=== PATIENT | female | born 1985 | race Caucasian/White ===

== ENCOUNTER 2017-09-04 14:29 | Outpatient (CLI) ==
[2015-05-22 20:10] VITALS: BMI 34.7
--- NOTE | 2017-09-04 15:21 | DI ---
EXAM: Three views of the left fingers. History: Left thumb pain. Findings: No acute fracture or dislocation. No abnormal calcifications or radiopaque foreign bodies . Joint spaces are preserved. Impression: Unremarkable exam
--- NOTE | 2017-09-04 15:21 | DI ---
EXAM: Three views of the right fingers. History: Right thumb pain. Findings: No acute fracture or dislocation. No abnormal calcifications or radiopaque foreign bodies . Joint spaces are preserved. Impression: Unremarkable exam
== END 2017-09-04 14:30 | disposition home or self-care (01) ==
LOC: RAD 14:29
PROVIDERS: ATTEND Family Medicine
DX: M79.644 Pain in right finger(s) (principal); M79.645 Pain in left finger(s)

== ENCOUNTER 2017-10-13 15:42 | Emergency (ER) ==
[2017-10-13 15:57] VITALS: BP 143/99; TEMP 99.2; BMI 39.4
--- NOTE | 2017-10-13 17:09 | ED.PDOC ---
General ED Provider: Dr. JO ANN CHEEMA Chief Complaint: Abscess Stated Complaint: PAIN, REDNESS AND SWELLING RT FOREARM. STATED CAME INSIDE AFTER WALKING HER DOG LAST NIGHT AND FELT SLIGHT DISCOMFORT LT FOREARM. APPEARED LIKE INSECT OR MOSQUITO BITE. Time Seen by Physician: 16:00 Mode of Arrival: Walk-In Information Source: Patient Exam Limitations: No limitations Primary Care Provider: JO ANN ESCAMILLA Nursing and Triage Documentation Reviewed and Agree: Yes Reviewed sepsis parameters & appropriate labs ordered?: Yes System Inflammatory Response Syndrome: Not Applicable Sepsis Protocol: For patient's 13 years and over: Temp is 96.8 and below OR 101 and greater Pulse >90 BPM Resp >20/minute Acutely Altered Mental Status Are patient's symptoms suggestive of a new infection, such as: -Pneumonia -Skin, Soft Tissue -Endocarditis -UTI -Bone, Joint Infection -Implantable Device -Acute Abdominal Infection -Wound Infection -Meningitis -Blood Stream Catheter Infection -Unknown System Inflammatory Response Syndrome: Not Applicable Environmental Complaint Exam - Allergic Reaction Complaint/Exam Symptoms Are: Still present Timing: Constant Initial Severity: Moderate Current Severity: Moderate Location: Discrete Character: Present: Swelling, Pruritis, Pain Aggravating: Reports: None Alleviating: Reports: None Associated Signs and Symptoms: Denies: Difficulty breathing, Cough, Hoarseness, Rash, Abdominal pain, Diaphoresis, Lightheadedness, Syncope, Nausea Possible Reaction To: Reports: Insect Diphenhydramine Prior to Arrival: No Epinephrine Auto Injector Prior to Arrival: No Respiratory Distress: None Findings: Present: Vesicular rash. Absent: Dysphagia, Hoarseness, Oropharyngeal edema, Angioedema, Petechiael rash Differential Diagnoses: Local Allergic Reaction (WITH SURROUNDING ERYTHREMA EXTENDING APPROXIMATELY 3 CM) Review of Systems - Review Of Systems Constitutional: Reports: No symptoms Eyes: Reports: No symptoms Ears, Nose, Mouth, Throat: Reports: No symptoms Respiratory: Reports: No symptoms Cardiac: Reports: No symptoms GI: Reports: No symptoms : Reports: No symptoms Musculoskeletal: Reports: No symptoms Skin: Reports: Change in color, Lesions (ERYTHREMA), Rash Neurological: Reports: No symptoms All Other Systems: Reviewed and Negative Past Medical History - Past Medical History Endocrine: Reports: None Cardiovascular: Reports: Hypertension Respiratory: Reports: None Hematological: Reports: None Gastrointestinal: Reports: None Genitourinary: Reports: None Neuro/Psych: Reports: Anxiety Musculoskeletal: Reports: None Cancer: Reports: None Last Menstrual Period: 10/07/16 Other Pertinent Past Medical History: RECENT DELIVERY 5 WEEKS AGO - Surgical History General Surgical History: Reports: None - Family History Family History: Reports: None - Social History Smoking Status: Never smoker Hx Substance Use: No Alcohol Screening: None - Immunizations Tetanus Shot up to Date: Yes (few months ago) Physical Exam - Physical Exam Appearance: Well-appearing Ill-appearing: None Pain Distress: Mild Eyes: SAMMY, EOMI, Conjunctiva clear ENT: Ears normal, Nose normal, Oropharynx normal Neck: Supple Respiratory: Airway patent, Breath sounds clear, Breath sounds equal, Wheezes ( FINE POS[employer]IOR [employer]SP[employer]) Cardiovascular: RRR, Pulses normal, No rub, No murmur GI/: Soft, Nontender Musculoskeletal: Normal strength, ROM intact, No edema Skin: Warm (LT FOREARM VOLAR LAT ASPECT DISTAL 1/3 CENTRAL [id number]-[id number] LIZET WITH SURROUNDING ERYTHREMA /PATIENT DEMARCATED WITH PEN(4 CM)) Neurological: Sensation intact, Alert, Oriented Psychiatric: Affect appropriate, Mood appropriate Re-Evaluation - Re-Evaluation Time of Re-Evaluation: 18:30 Status: Improved Vital Signs Stable: Yes Appearance: NAD Lungs: Clear Skin: Warm and Dry (ERYTHREMA LESSENED AND LESS EDEMATOUS AND LESS TENDER) Neuro: Alert and Oriented X3 CV: RRR Critical Care Note - Critical Care Note Total Time (mins): 0 Course - Course Hematology/Chemistry: 10/13/17 17:25 10/13/17 17:25 Orders, Labs, Meds: Lab Review 10/13/17 10/13/17 17:25 17:25 WBC 9.91 RBC 4.84 Hgb 14.1 Hct 41.7 MCV 86.2 MCH 29.1 MCHC 33.8 RDW Coeff of Rozina 12.8 Plt Count 335 Immature Gran % (Auto) 0.2 Neut % (Auto) 58.6 Lymph % (Auto) 33.8 [place] % (Auto) 5.0 Eos % (Auto) 2.0 Baso % (Auto) 0.4 Immature Gran # (Auto) 0.0 Neut # (Auto) 5.8 Lymph # (Auto) 3.4 [place] # (Auto) 0.5 Eos # (Auto) 0.2 Baso # (Auto) 0.0 Sodium 140 Potassium 3.9 Chloride 105 Carbon Dioxide 24 Anion Gap 14.9 BUN 12 Creatinine 0.85 Estimated GFR (MDRD) 77.00 BUN/Creatinine Ratio 14.11 Glucose 89 Calcium 9.1 Total Bilirubin 0.4 AST 20 ALT 39 Alkaline Phosphatase 105 H Total Protein 7.7 Albumin 3.4 Globulin 4.3 Albumin/Globulin Ratio 0.79 Orders Category Date Time Status CBC W/ AUTO DIFF Stat LAB 10/13/17 17:25 Completed CMP [COMPREHENSIVE METABOLIC PANEL] Stat LAB 10/13/17 17:25 Completed Dexamethasone 4 mg/ml Inj [Decadron 4 mg/ml Sdv] MEDS 10/13/17 17:02 Discontinued 4 mg IM ONCE STA Diphenhydramine HCl [Benadryl] MEDS 10/13/17 17:03 Discontinued 25 mg PO ONCE STA Medications Discontinued Medications Generic Name Dose Route Start Last Admin Trade Name Freq PRN Reason Stop Dose Admin Dexamethasone Sodium Phosphate 4 mg 10/13/17 17:02 10/13/17 17:22 Decadron 4 Mg/Ml Sdv IM 10/13/17 17:03 4 mg ONCE STA Administration Diphenhydramine HCl 25 mg 10/13/17 17:03 10/13/17 17:22 Benadryl PO 10/13/17 17:04 25 mg ONCE STA Administration Vital Signs: Temp Pulse Resp BP Pulse Ox 10/13/17 15:43 99.2 F 83 20 143/99 H 98 Departure - Departure Time of Disposition: 18:35 Disposition: HOME SELF-CARE Discharge Problem: Insect bite, Cellulitis of forearm, left Instructions: Cellulitis (ED), Insect Bite or Sting (ED) Condition: Good Pt referred to PMD for follow-up: Yes (3-4 DAYS) IPMP verified?: No Additional Instructions: TAKE MEDS DIRECTED RETURN TO ER IF WORSENS Prescriptions: Azithromycin [Zithromax] 250 mg PO DAILY #6 tablet Prednisone 10 mg PO DAILYWM #22 tablet Allergies/Adverse Reactions: Allergies Penicillins Adverse Reaction (Verified 10/13/17 15:56) Home Medications: Ambulatory Orders Bupropion HCl [Wellbutrin] 75 mg PO DAILY 05/22/15 Azithromycin [Zithromax] 250 mg PO DAILY #6 tablet 10/13/17 Prednisone 10 mg PO DAILYWM #22 tablet 10/13/17 Disposition Discussed With: Patient, Family
[2017-10-13] MEDS: BENADRYL PO STA (17:22)
[2017-10-13] MEDS: DECADRON 4 MG/ML SDV IM STA (17:22)
== END 2017-10-13 18:55 | disposition home or self-care (01) ==
LOC: ED 15:42
DX: L03.114 Cellulitis of left upper limb (principal); S50.862A Insect bite (nonvenomous) of left forearm, initial encounter; W57.XXXA Bitten or stung by nonvenomous insect and other nonvenomous arthropods, initial encounter
CPT/HCPCS: 36415; 80053; 85025; 96372; 99282

== ENCOUNTER 2017-12-24 16:34 | Emergency (ER) | payer OTHER ==
[2017-12-24 16:48] VITALS: BP 121/92; TEMP 98.5; BMI 40.1
[2017-12-24] MEDS ORDERED: DUONEB NEB STA (16:49)
--- NOTE | 2017-12-24 17:57 | ED.PDOC ---
General <JO ANN RUFF - Last Filed: 12/24/17 18:54> Stated Complaint: SHORTNESS OF BREATH Time Seen by Physician: 16:40 (SEEN WITH PT'S NURSE ) Mode of Arrival: Walk-In Information Source: Patient Exam Limitations: No limitations Referred to ED by: Other (5 DAYS POST OP FROM /B SURGERY) Nursing and Triage Documentation Reviewed and Agree: Yes Reviewed sepsis parameters & appropriate labs ordered?: Yes System Inflammatory Response Syndrome: Not Applicable System Inflammatory Response Syndrome: Not Applicable <WOODY ROB - Last Filed: 12/26/17 08:20> ED Provider: Dr. WOODY ROB Chief Complaint: Shortness of Air Primary Care Provider: JO ANN ESCAMILLA Sepsis Protocol: For patient's 13 years and over: Temp is 96.8 and below OR 101 and greater Pulse >90 BPM Resp >20/minute Acutely Altered Mental Status Are patient's symptoms suggestive of a new infection, such as: -Pneumonia -Skin, Soft Tissue -Endocarditis -UTI -Bone, Joint Infection -Implantable Device -Acute Abdominal Infection -Wound Infection -Meningitis -Blood Stream Catheter Infection -Unknown Review of Systems - Review Of Systems Constitutional: Reports: No symptoms Eyes: Reports: No symptoms Ears, Nose, Mouth, Throat: Reports: No symptoms Respiratory: Reports: Cough, Short of air Cardiac: Reports: No symptoms GI: Reports: No symptoms : Reports: No symptoms Musculoskeletal: Reports: No symptoms Skin: Reports: No symptoms Neurological: Reports: No symptoms Endocrine: Reports: No symptoms Hematologic/Lymphatic: Reports: No symptoms All Other Systems: Reviewed and Negative <WOODY ROB - Last Filed: 12/26/17 08:20> Past Medical History - Past Medical History Previously Healthy: Yes Endocrine: Reports: None Cardiovascular: Reports: Hypertension Respiratory: Reports: None Hematological: Reports: None Gastrointestinal: Reports: None Genitourinary: Reports: None Neuro/Psych: Reports: Anxiety Musculoskeletal: Reports: None Cancer: Reports: None Last Menstrual Period: 12/13/17 Other Pertinent Past Medical History: RECENT DELIVERY 5 WEEKS AGO - Surgical History General Surgical History: Reports: None - Family History Family History: Reports: None - Social History Smoking Status: Never smoker Hx Substance Use: No Alcohol Screening: None <WOODY ROB - Last Filed: 12/26/17 08:20> Physical Exam - Physical Exam Appearance: Ill-appearing Ill-appearing: Mild Pain Distress: Mild Eyes: SAMMY, EOMI, Conjunctiva clear ENT: Ears normal, Nose normal, Oropharynx normal Respiratory: Wheezes Cardiovascular: RRR, Pulses normal, No rub, No murmur GI/: Soft, Nontender, No masses, Bowel sounds normal, No Organomegaly Musculoskeletal: Normal strength, ROM intact, No edema, No calf tenderness Skin: Warm, Dry, Normal color Neurological: Sensation intact, Motor intact, Reflexes intact, Cranial nerves intact, Alert, Oriented Psychiatric: Affect appropriate, Mood appropriate <WOODY ROB - Last Filed: 12/26/17 08:20> Critical Care Note - Critical Care Note Total Time (mins): 0 <WOODY ROB - Last Filed: 12/26/17 08:20> Course - Course Hematology/Chemistry: 12/24/17 16:51 12/24/17 16:51 <JO ANN RUFF - Last Filed: 12/24/17 18:54> - Course Hematology/Chemistry: 12/24/17 16:51 12/24/17 16:51 <WOODY ROB - Last Filed: 12/26/17 08:20> - Course Orders, Labs, Meds: Lab Review 12/24/17 12/24/17 12/24/17 16:51 16:51 16:51 WBC 5.10 RBC 4.77 Hgb 13.8 Hct 40.6 MCV 85.1 MCH 28.9 MCHC 34.0 RDW Coeff of Rozina 12.1 Plt Count 246 Immature Gran % (Auto) 0.2 Neut % (Auto) 46.2 Lymph % (Auto) 36.1 [place] % (Auto) 10.6 H Eos % (Auto) 6.3 Baso % (Auto) 0.6 Immature Gran # (Auto) 0.0 Neut # (Auto) 2.4 Lymph # (Auto) 1.8 [place] # (Auto) 0.5 Eos # (Auto) 0.3 Baso # (Auto) 0.0 D-Dimer (Manual) 1214.35 Sodium 138 Potassium 4.0 Chloride 104 Carbon Dioxide 24 Anion Gap 14.0 BUN 10 Creatinine 0.79 Estimated GFR (MDRD) 84.00 BUN/Creatinine Ratio 12.65 Glucose 108 Calcium 9.0 Total Bilirubin 0.5 AST 20 ALT 41 Alkaline Phosphatase 131 H Total Creatine Kinase 24 Troponin I < 0.0100 Total Protein 6.8 Albumin 2.9 L Globulin 3.9 Albumin/Globulin Ratio 0.74 Serum , Qual 12/24/17 16:51 WBC RBC Hgb Hct MCV MCH MCHC RDW Coeff of Rozina Plt Count Immature Gran % (Auto) Neut % (Auto) Lymph % (Auto) [place] % (Auto) Eos % (Auto) Baso % (Auto) Immature Gran # (Auto) Neut # (Auto) Lymph # (Auto) [place] # (Auto) Eos # (Auto) Baso # (Auto) D-Dimer (Manual) Sodium Potassium Chloride Carbon Dioxide Anion Gap BUN Creatinine Estimated GFR (MDRD) BUN/Creatinine Ratio Glucose Calcium Total Bilirubin AST ALT Alkaline Phosphatase Total Creatine Kinase Troponin I Total Protein Albumin Globulin Albumin/Globulin Ratio Serum , Qual Negative Orders Category Date Time Status NEBULIZER TREATMENT Stat CARDIO 12/24/17 16:49 Completed NPO REMINDER: IMAGING ONCE CARE 12/24/17 17:46 Completed ED IV/MEDIPORT/POWERPORT .ONCE EMERGENCY 12/24/17 16:41 Active CBC W/ AUTO DIFF Stat LAB 12/24/17 16:51 Completed COMPREHENSIVE METABOLIC PANEL Stat LAB 12/24/17 16:51 Completed CREATINE KINASE Stat LAB 12/24/17 16:51 Completed D-DIMER Stat LAB 12/24/17 16:51 Completed SERUM Stat LAB 12/24/17 16:51 Completed TROPONIN I Stat LAB 12/24/17 16:51 Completed 0.9 % Sodium Chloride [Saline Flush] MEDS 12/24/17 16:41 Discontinued 1 syr IVF PRN PRN Ipratropium/Albuterol Neb [Duoneb] MEDS 12/24/17 16:49 Discontinued 1 vial NEB ONCE STA Levofloxacin [Levaquin] MEDS 12/24/17 18:53 Discontinued 500 mg PO ONCE STA CT CHEST PE PROTOCOL Stat RADS 12/24/17 17:46 Completed Medications Discontinued Medications Generic Name Dose Route Start Last Admin Trade Name Freq PRN Reason Stop Dose Admin Albuterol/Ipratropium 1 vial 12/24/17 16:49 12/24/17 17:29 Duoneb NEB 12/24/17 16:50 1 vial ONCE STA Administration Levofloxacin 500 mg 12/24/17 18:53 12/24/17 18:58 Levaquin PO 12/24/17 18:54 500 mg ONCE STA Administration Sodium Chloride 1 syr 12/24/17 16:41 Saline Flush IVF PRN PRN To flush IV Vital Signs: Temp Pulse Resp BP Pulse Ox 12/24/17 16:38 98.5 F 79 28 H 121/92 H 98 Departure - Departure Pt referred to PMD for follow-up: Yes IPMP verified?: No Disposition Discussed With: Patient, Family <ANDIJO ANN BORREGO - Last Filed: 12/24/17 18:54> - Departure Time of Disposition: 19:00 Pt referred to PMD for follow-up: Yes IPMP verified?: No Disposition Discussed With: Patient <WOODY ROB - Last Filed: 12/26/17 08:20> - Departure Disposition: HOME SELF-CARE Discharge Problem: Shortness of breath Instructions: Community Acquired Pneumonia (ED), Shortness of Breath (ED) Condition: Good Additional Instructions: levaquin 500mg q daily #10---f/u with outpatientPlease call your Family Physician as soon as possible to schedule a follow-up appointment. Allergies/Adverse Reactions: Allergies adhesive Adverse Reaction (Verified 12/25/17 13:52) Penicillins Adverse Reaction (Verified 12/25/17 13:52) Home Medications: Ambulatory Orders Desogestrel-Ethinyl Estradiol [Apri 28 Day Tablet] 1 each PO DAILY 12/24/17 Escitalopram Oxalate [Lexapro] 20 mg PO DAILY 12/24/17 Hydrocodone Bit/Acetaminophen [[place] 5-325] 1 - 2 tab PO Q4HR PRN 12/24/17 Labetalol HCl 200 mg PO DAILY 12/24/17 No122/Iron/Folic Acid [ Multi Tablet] 1 each PO DAILY 12/24/17
--- NOTE | 2017-12-24 18:49 | CT ---
Exam: CT angiography of the chest History: Status post gallbladder surgery with elevated D-dimer Technique: [address] of the chest utilizing CT angiography protocol. Multiplanar and max imum intensity projection reformations were performed. FINDINGS: Technically adequate for evaluation of pulmonary arteries and aorta. There are no pulmona ry artery filling defects. Vague reticular nodular infiltrate in the left lower lobe. There is no pl eural fluid or consolidative opacity. No pathologic lymph node enlargement or abundance. No abnorma lity of the heart, great vessels or pericardium. No abnormality of the chest wall soft tissues or tobi ny thorax. No abnormality of the upper abdomen. Impression: 1. No evidence of pulmonary artery thrombus 2. Reticular and nodular left lower lobe infiltrate. Correlate for pneumonitis.
[2017-12-24] MEDS ORDERED: LEVAQUIN PO STA (18:53)
== END 2017-12-24 18:59 | disposition home or self-care (01) ==
LOC: ED 16:34
DX: J18.9 Pneumonia, unspecified organism (principal); R06.02 Shortness of breath; I10 Essential (primary) hypertension; Z98.890 Other specified postprocedural states
CPT/HCPCS: 36415; 80053; 82550; 84484; 84703; 85025; 85379; 94640; 99284

== ENCOUNTER 2017-12-25 13:42 | Emergency (ER) | payer OTHER ==
[2017-12-25 13:50] VITALS: BP 136/91; TEMP 98.4; BMI 39.4
--- NOTE | 2017-12-25 14:19 | ED.PDOC ---
General ED Provider: Dr. JO ANN CHEEMA Chief Complaint: Abdominal Pain Stated Complaint: Abdominal pain. Patient presents for re evaluation of her pain. was evaluated in the ER yesterday for same symptoms. Discharged with dx of pneumonia. had gallbladder surgery this past . States she has developed upper abd pain, sharp in nature State it feels like area where she had the surgery and were her gallbladder was located. Stated she had ct scan yesterday to r/o Pulmonary Embolus which was negative. yesterday-- none found but has pneumonia--"this does not feel like pneumonia"--feels weak and like she might pass out at time Time Seen by Physician: 14:15 Mode of Arrival: Walk-In Information Source: Patient Exam Limitations: No limitations Primary Care Provider: JO ANN ESCAMILLA Seen Within Last 72 Hours for Same Complaint By: ED Nursing and Triage Documentation Reviewed and Agree: Yes Reviewed sepsis parameters & appropriate labs ordered?: Yes System Inflammatory Response Syndrome: Not Applicable Sepsis Protocol: For patient's 13 years and over: Temp is 96.8 and below OR 101 and greater Pulse >90 BPM Resp >20/minute Acutely Altered Mental Status Are patient's symptoms suggestive of a new infection, such as: -Pneumonia -Skin, Soft Tissue -Endocarditis -UTI -Bone, Joint Infection -Implantable Device -Acute Abdominal Infection -Wound Infection -Meningitis -Blood Stream Catheter Infection -Unknown System Inflammatory Response Syndrome: Not Applicable GI Complaint Exam - Abdominal Pain Complaint/Exam Onset: Gradual Symptoms Are: Still present (but improved) Timing: Intermittent Initial Severity: Severe Current Severity: Mild Location of Pain: RUQ Radiates To: Reports: Back (and middle abdomen under rt breast) Character: Reports: Dull Aggravating: Reports: Movement Alleviating: Reports: Rest Associated Signs and Symptoms: Reports: Back pain, Nausea Related History: Reports: Similar episode Abdominal Findings: Present: None, CVA Tenderness. Absent: Pulsatile mass, Abdominal distention, Rebound tenderness, Peritoneal signs, McBurney's Point tender, Inguinal swelling Differential Diagnoses: Pancreatitis, Other (retained common duct stone) Review of Systems - Review Of Systems Constitutional: Reports: No symptoms Eyes: Reports: No symptoms Ears, Nose, Mouth, Throat: Reports: No symptoms Respiratory: Reports: No symptoms Cardiac: Reports: No symptoms GI: Reports: Abdominal pain. Denies: Abdomen distended, Blood streaked bowels, Constipated, Diarrhea : Reports: No symptoms Musculoskeletal: Reports: No symptoms Skin: Reports: No symptoms Neurological: Reports: No symptoms Endocrine: Reports: No symptoms Hematologic/Lymphatic: Reports: No symptoms All Other Systems: Reviewed and Negative Past Medical History - Past Medical History Previously Healthy: Yes Endocrine: Reports: None Cardiovascular: Reports: Hypertension Respiratory: Reports: None Hematological: Reports: None Gastrointestinal: Reports: None Genitourinary: Reports: None Neuro/Psych: Reports: Anxiety Musculoskeletal: Reports: None Cancer: Reports: None Last Menstrual Period: december 13 Other Pertinent Past Medical History: RECENT DELIVERY 5 WEEKS AGO - Surgical History General Surgical History: Reports: None - Family History Family History: Reports: None - Social History Smoking Status: Never smoker Hx Substance Use: No Alcohol Screening: None Physical Exam - Physical Exam Appearance: Well-appearing, No pain distress, Obese Ill-appearing: Mild Pain Distress: Mild Eyes: SAMMY, EOMI, Conjunctiva clear ENT: Ears normal, Nose normal, Oropharynx normal Respiratory: Airway patent, Breath sounds clear, Breath sounds equal, Respirations nonlabored Cardiovascular: RRR, Pulses normal, No rub, No murmur GI/: Soft (healed surgical sites abdominal region'/neg guarding or rebound), Nontender, No masses, Bowel sounds normal, No Organomegaly Musculoskeletal: Normal strength, ROM intact, No edema, No calf tenderness Skin: Warm, Dry, Normal color Neurological: Sensation intact, Motor intact, Reflexes intact, Cranial nerves intact, Alert, Oriented Psychiatric: Affect appropriate, Mood appropriate Interpretation - Radiology Interpretation Radiology Interpretation By: Radiologist Radiology Results: Positive (LLL infiltrated/abdomen negative) Exam Interpreted: CT Scan Re-Evaluation - Re-Evaluation Time of Re-Evaluation: 17:30 Status: Improved Vital Signs Stable: Yes Appearance: NAD Lungs: Clear Skin: Warm and Dry Neuro: Alert and Oriented X3 CV: RRR Critical Care Note - Critical Care Note Total Time (mins): 0 Course - Course Hematology/Chemistry: 12/25/17 15:30 12/25/17 15:30 Orders, Labs, Meds: Lab Review 12/25/17 12/25/17 12/25/17 15:28 15:30 15:30 WBC 6.79 RBC 4.95 Hgb 14.3 Hct 42.4 MCV 85.7 MCH 28.9 MCHC 33.7 RDW Coeff of Rozina 12.3 Plt Count 258 Immature Gran % (Auto) 0.0 Neut % (Auto) 61.1 Lymph % (Auto) 25.0 [place] % (Auto) 8.8 Eos % (Auto) 4.4 Baso % (Auto) 0.7 Immature Gran # (Auto) 0.0 Neut # (Auto) 4.1 Lymph # (Auto) 1.7 [place] # (Auto) 0.6 Eos # (Auto) 0.3 Baso # (Auto) 0.1 Sodium 138 Potassium 4.1 Chloride 103 Carbon Dioxide 26 Anion Gap 13.1 BUN 13 Creatinine 0.84 Estimated GFR (MDRD) 78.00 BUN/Creatinine Ratio 15.47 Glucose 87 Calcium 9.6 Total Bilirubin 0.4 AST 36 ALT 49 Alkaline Phosphatase 185 H D Total Protein 7.5 Albumin 3.2 L Globulin 4.3 Albumin/Globulin Ratio 0.74 Lipase 20 Serum , Qual Urine Color Yellow Urine Clarity Clear Urine pH 7.0 Ur Specific [place] >=1.030 Urine Protein Trace Urine Glucose (UA) Negative Urine Ketones Negative Urine Blood Negative Urine Nitrite Negative Urine Bilirubin Negative Urine Urobilinogen 0.2 Ur Leukocyte Esterase Negative Ur Squamous Epith Cells 20-30 Urine Mucus 1+ 12/25/17 15:30 WBC RBC Hgb Hct MCV MCH MCHC RDW Coeff of Rozina Plt Count Immature Gran % (Auto) Neut % (Auto) Lymph % (Auto) [place] % (Auto) Eos % (Auto) Baso % (Auto) Immature Gran # (Auto) Neut # (Auto) Lymph # (Auto) [place] # (Auto) Eos # (Auto) Baso # (Auto) Sodium Potassium Chloride Carbon Dioxide Anion Gap BUN Creatinine Estimated GFR (MDRD) BUN/Creatinine Ratio Glucose Calcium Total Bilirubin AST ALT Alkaline Phosphatase Total Protein Albumin Globulin Albumin/Globulin Ratio Lipase Serum , Qual Negative Urine Color Urine Clarity Urine pH Ur Specific [place] Urine Protein Urine Glucose (UA) Urine Ketones Urine Blood Urine Nitrite Urine Bilirubin Urine Urobilinogen Ur Leukocyte Esterase Ur Squamous Epith Cells Urine Mucus Orders Category Date Time Status NPO REMINDER: IMAGING ONCE CARE 12/25/17 15:24 Completed CBC W/ AUTO DIFF Stat LAB 12/25/17 15:30 Completed CMP [COMPREHENSIVE METABOLIC PANEL] Stat LAB 12/25/17 15:30 Completed HCG QUALITATIVE [SERUM ] Stat LAB 12/25/17 15:30 Completed LIPASE Stat LAB 12/25/17 15:30 Completed UA [URINALYSIS C & S IF INDICATED] Stat LAB 12/25/17 15:[address] ABDOMEN/PELVIS W/WO CONTRAS Stat RADS 12/25/17 15:22 Completed Vital Signs: Temp Pulse Resp BP Pulse Ox 12/25/17 13:43 98.4 F 83 20 136/91 H 98 Departure - Departure Time of Disposition: 17:50 Disposition: HOME SELF-CARE Discharge Problem: Abdominal pain, Status post cholecystectomy, Elevated alkaline phosphatase level, Pneumonia Instructions: Pneumonitis (ED), Laparoscopic Cholecystectomy (DC), Abdominal Pain (ED) Condition: Good Pt referred to PMD for follow-up: Yes (3-[address] Zavala ) IPMP verified?: No Allergies/Adverse Reactions: Allergies adhesive Adverse Reaction (Verified 12/25/17 13:52) Penicillins Adverse Reaction (Verified 12/25/17 13:52) Home Medications: Ambulatory Orders Desogestrel-Ethinyl Estradiol [Apri 28 Day Tablet] 1 each PO DAILY 12/24/17 Escitalopram Oxalate [Lexapro] 20 mg PO DAILY 12/24/17 Hydrocodone Bit/Acetaminophen [[place] 5-325] 1 - 2 tab PO Q4HR PRN 12/24/17 Labetalol HCl 200 mg PO DAILY 12/24/17 No122/Iron/Folic Acid [ Multi Tablet] 1 each PO DAILY 12/24/17 Disposition Discussed With: Patient, Family Additional Information: Explained to patient results of CT Scan plus possible mechanisms of her pain Remain on prescribed antibiotics See Dr Zavala in 3-5 days
--- NOTE | 2017-12-25 17:02 | CT ---
EXAM: CT ABDOMEN AND PELVIS HISTORY: Severe recurrent right upper quadrant pain, recent cholecystectomy. TECHNIQUE: CT abdomen and pelvis with and without intravenous contrast. Images were reconstructed u sing 5 mm section thickness. Reformations were prepared. 75 mL Omnipaque. COMPARISON: None FINDINGS: The patient is post cholecystectomy. There is no gallbladder fossa fluid collection or inflammatory change. The common bile duct appears grossly unremarkable within limits of this exam. There is no i ntrahepatic biliary dilatation or pneumobilia. The pancreas appears normal. Spleen is normal. The adrenal glands, kidneys and ureters are normal. Normal abdominal aorta. No distinct gastric abnormality is identified. Normal appendix and bowel g as pattern. Uterus and urinary bladder are unremarkable. There is no ascites. There is no ventral abdominal wall hernia or peripheral soft tissue fluid collection. The bones are within normal limits. There is mild infiltrate in the left lung base. No pneumoperitoneum. IMPRESSION: 1. No clear etiology for the patient's right upper quadrant pain. 2. Mild infiltrate in the left lung base may represent pneumonia.
== END 2017-12-25 17:55 | disposition home or self-care (01) ==
LOC: ED 13:42
DX: R10.10 Upper abdominal pain, unspecified (principal); J18.9 Pneumonia, unspecified organism; R74.8 Abnormal levels of other serum enzymes; R53.1 Weakness; I10 Essential (primary) hypertension; Z98.890 Other specified postprocedural states; Z90.49 Acquired absence of other specified parts of digestive tract
CPT/HCPCS: 36415; 80053; 81001; 83690; 84703; 85025; 99283

== ENCOUNTER 2018-01-04 10:38 | Outpatient (CLI) ==
--- NOTE | 2018-01-04 12:58 | DI ---
EXAM: Chest two view, frontal and lateral views. HISTORY: Pneumonia. COMPARISON: 12/24/2017. FINDINGS: The heart size is normal. There is no pulmonary vascular congestion. The lungs are clear . The left lower lobe opacities seen on CT are not identified by radiograph, although may not be det ectable. No pleural effusion or pneumothorax is seen. No acute osseous abnormality identified. Cli ps seen in the upper abdomen. IMPRESSION: No acute cardiopulmonary process.
== END 2018-01-04 10:39 | disposition home or self-care (01) ==
LOC: RAD 10:38
PROVIDERS: ATTEND Family Medicine
DX: J18.9 Pneumonia, unspecified organism (principal)

== ENCOUNTER 2019-04-15 15:36 | Outpatient (CLI) | END 2019-04-15 15:37 | disposition home or self-care (01) | LOC: LAB 15:36 | PROVIDERS: ATTEND Family Medicine | DX: R53.83 Other fatigue (principal) | CPT/HCPCS: 36415; 84439; 84443 ==